=== PATIENT | male | born 1990 | race African-American/Black ===

== ENCOUNTER 2017-02-17 08:13 | Day surgery (SDC) | payer BC, OTHER ==
--- NOTE | 2017-02-16 12:13 | PDOC1 ---
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 He is a Safety, and had a noncontact injury where he planted his left foot, felt a pop in his Achilles and went down. He came off the field on a Gator, and even on the field he told the Lead Recoverer that he had ruptured his Achilles. He felt "numbness" in the Achilles, but his foot had normal sensation. He reported the lack of any plantarflexion strength. I examined him on the sidelines and confirmed an abnormal Garcia test done in the prone position. He was splinted , and iced and given crutches. Also, of note, in the first quarter of the game, he came off the field with a "shoulder dislocation" confirmed by the dog handler or trainer and then reduced by the call center trainer while still wearing his pads. He felt so good immediately after the reduction of the shoulder, with no pain, instability or weakness, that he was able to return to play. His shoulder was only slightly sore after the Achilles injury, and he was able to use crutches. The call center trainer is fairly confident that the dislocation was anterior, but by the time I saw the patient it had already been reduced, and I agree he had minimal symptoms. He reported no prior shoulder dislocation history or instability. Past Medical History Pulmonary: Asthma Past Surgical History Past Surgical History nasal surgery 2009 Family History Family History: Cancer (pancreatic), Diabetes Social History Smoke: No ALCOHOL: none Drugs: None Allergies Allergies: Coded Allergies: soy (Verified Allergy, Unknown, TEST REPORT POSITVE, 02/16/17) Physical Exam General: Alert, Oriented X3, Cooperative, No acute distress HEENT: Atraumatic, EOMI Lungs: Normal air movement Heart: RRR Abdomen: Soft Extremities: No clubbing, No cyanosis, Normal pulses, Other (Left leg minimal swelling at this time. Palpable defect in the Achilles tendon 5 cm proximal to the calcaneus. Markedly abnormal Garcia test. The other ankle has a normal Garcia test. He reports "numbness where my Achilles should be". I think he's feeling the acute loss of proprioceptive tendon fibers. He does not have numbness in the toes or foot, and the neurovascular exam distal is normal except for the loss of plantarflexion. His toe and ankle dorsiflexion are preserved. Nontender at the knee. Calf muscles have vague tenderness.) Skin: No rashes, No breakdown, No significant lesion Neuro: Normal speech, Sensation intact Psych/Mental Status: Mental status NL, Mood NL VTE Prophylaxis Ordered VTE Prophylaxis Devices: Yes VTE Pharmacological Prophylaxi: Yes Assessment/Plan Assessment/Plan Left achilles tendon rupture. He has an obvious acute left Achilles tendon rupture (closed, left). I discussed options for treatment. Most surgeons recommend acute surgical repair ( ideally within 7 days) for this injury, but I advised him there are a percentage of surgeons who treat this injury non operatively first in a long leg cast, and then a shorter cast. The risk of infections is less, but the risk of repeat rupture is higher than with surgery. I would recommend surgery for any healthy athlete such as him. I discussed the risks of surgery, including the most common for this surgery which is wound healing or skin problems and infection, followed by a small percentage of repeat rupture (much less than without surgery), and risks of blood clots or other potential surgical or anesthetic complications. We will use IV antibiotics, and oral postop aspirin to decrease the risks of infection or DVT. I discussed the procedure with suture repair, then a splint for 2 weeks, followed by a boot for 4 more weeks. At 6 weeks postop walking is likely, but no running. Then rehab often for several months before feeling solid and strong for sports. He stated understanding of the risks benefits and alternatives and would like to proceed with surgery. I recommend outpatient surgery on Monday02/17/17. He is currently splinted and on crutches. No x-ray or MRI is indicated. Surgery is indicated promptly. He agrees. Joana MCINTOSH and Patricio MCINTOSH were also present for the discussion. LILLIAN LONDON Feb 16, 2017 12:13
[~2017-02-17] VITALS: Ht 185.4 cm; Wt 102.1 kg
[~2017-02-17 08:13] MED LIST: ACET500T68 PO; BUDE10.2 IH; BUPIVACAINE 0.25% 50 ML VIAL. ONE; BUPIVACAINE-EPI 0.25%-1:200000 MPF 30 ML VIAL. ONE; FEXO180T81 PO; HYDROmorphone 2 MG/ML VIAL IV PRN; IBUP-1060 PO; IV RINGERS,LACTATED 1000ML 1,000 ML IV SCH; LIDOCAINE 1% 1 ML SYRINGE. ID PRN; MORPHINE SULFATE 2 MG/ML DISP.SYRIN. IV PRN; ONDANSETRON PF 4 MG/2 ML VIAL. IV PRN; PROAIR RESPICL90 MCG IH; PROCHLORPERAZINE 10 MG/2 ML VIAL. IV PRN; fentaNYL PF VIAL 100 MCG/2 ML VIAL IV PRN
[2017-02-17] MEDS ORDERED: SEVOFLURANE 61 TO 120 MINUTES. IH ONE (08:24)
[2017-02-17] MEDS ORDERED: PROPOFOL 20 ML IV ONE (08:27)
[2017-02-17] MEDS ORDERED: ROCURONIUM 100 MG/10 ML VIAL. ONE (08:27)
[2017-02-17] MEDS ORDERED: DEXAMETHASONE SOD PHOS 20 MG/5 ML VIAL. ONE (08:27)
[2017-02-17] MEDS ORDERED: KETOROLAC 60 MG/2 ML INJ FOR OR. ONE (08:27)
[2017-02-17] MEDS ORDERED: MIDAZOLAM HCL/PF 2 MG/2 ML VIAL. ONE (08:27)
[2017-02-17] MEDS ORDERED: NEOSTIGMINE METHYLSULFATE 5 MG/5 ML SYRINGE. ONE (08:27)
[2017-02-17] MEDS ORDERED: fentaNYL PF VIAL 100 MCG/2 ML VIAL ONE ×3 (08:27→11:38)
[2017-02-17] MEDS ORDERED: ONDANSETRON PF 4 MG/2 ML VIAL. ONE (08:27)
[2017-02-17] MEDS ORDERED: GLYCOPYRROLATE 1 MG/5 ML VIAL. ONE (08:27)
[2017-02-17] MEDS ORDERED: LIDOCAINE 2% PF Vial for OR 5 ML VIAL. ONE (08:28)
[2017-02-17] MEDS ORDERED: BUPIVACAINE-EPI 0.25%-1:200000 MPF 30 ML VIAL. ONE (10:44)
--- NOTE | 2017-02-17 11:23 | PDOC4 ---
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 He had a popping sensation, felt his Achilles tear, and fell to the ground. He was helped off the field. Garcia test was markedly abnormal consistent with Achilles rupture. He has had some previous Achilles tendinitis symptoms. 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 I recommended surgical repair although I did discuss the option of nonoperative treatment in a cast. The rerupture rate is higher without surgery. The risks of surgery include skin or wound healing problems, infection, nerve injury, blood clots, rerupture, scarring, stiffness, pain, or other potential surgical or anesthetic competitions, but the surgical outcomes to me seem better than the nonsurgical outcomes, and the literature also supports surgical fixation in athletes. The patient and I discussed the risks, benefits and alternatives of surgery. All of his questions about surgery were answered and he desired to proceed. His mother was also involved in the decision-making. She traveled from [place] to be her for the surgery today. Procedure in Detail: The patient was identified in the preoperative holding area. The correct left lower extremity was marked by me. The patient was taken to the operating room where general anesthesia was used. The patient was positioned prone on the operating table with the bony prominences well-padded and with the eyes protected. Preoperative antibiotics were given intravenously. A tourniquet was placed on the upper left thigh. A timeout procedure was performed. The left lower extremity was prepared from the toes to the knee with sterile skin prep fluid Sterile drapes were applied. An Esmarch bandage was used to exsanguinate the limb and the tourniquet was inflated to 300 mmHg. A longitudinal incision was made slightly medial to the midline of the Achilles , to avoid a painful heel scar. Sharp dissection was used and Bovie electrocautery was used for hemostasis. The peritenon was incised. A full- thickness high-grade Achilles tendon rupture was noted. The tendon fibers were markedly abnormal, with a lot of stranding, stringiness, and underlying tendinopathy. Despite this, it did appear that a primary repair could be obtained without difficulty. The hematoma was cleared with curettes, rongeurs, and irrigation. Central portion of the repairs using #5 FiberWire, in a Ventura pattern in the distal fragment which has less tendinosis, and then in a Krakw pattern on the proximal tendon which has more tendinopathy and does not hold the sutures quite as well. I had Nicole hold the foot plantar flexed to allow primary repair without difficulty, and reapproximated the tendon fiber. I did not debride any of the tendon fibers, as there would have been no obvious place to stop debriding abnormal tendon, without creating a huge defect. With Nicole holding the foot plantar flexed, the #5 FiberWire central core repair suture was tied and an excellent reapproximation was obtained. I then oversewed the tendon edges with 2-0 PDS suture, in a running baseball type pattern and was able to reapproximate the remaining stranded tendon fibers for a nice looking repair. Copious irrigation was used. Anesthetic was injected into the skin edges, consisting of 30 mL of 0.5% Marcaine with epinephrine. The tourniquet was released. Bovie electrocautery was used for hemostasis. The peritenon was repaired with 2-0 Vicryl interrupted sutures. The subcutaneous continues tissues were closed with 2-0 Vicryl interrupted sutures. I had Nicole close the skin with 2-0 nylon horizontal mattress sutures. Xeroform and a sterile dressing and a posterior splint were then applied by Nicole. Needle and sponge counts were correct. There were no apparent complications. KATHIE HORNE MD Feb 17, 2017 11:23
[2017-02-17] MEDS: fentaNYL PF VIAL 100 MCG/2 ML VIAL IV PRN ×2 (11:44→12:08)
[2017-02-17] MEDS ORDERED: HYDROcodone/APAP 7.5/325MG 1 TAB TABLET PO ONE (11:45)
[2017-02-17 13:10] VITALS: BP 115/78
== END 2017-02-17 13:16 | disposition home or self-care (01) ==
LOC: SURG 08:13
PROVIDERS: ATTEND Orthopaedic Surgery
DX: S86.012A Strain of left Achilles tendon, initial encounter (principal); X58.XXXA Exposure to other specified factors, initial encounter; Y93.89 Activity, other specified; Y92.89 Other specified places as the place of occurrence of the external cause; Y99.8 Other external cause status; J45.909 Unspecified asthma, uncomplicated; Z72.89 Other problems related to lifestyle; Z87.39 Personal history of other diseases of the musculoskeletal system and connective tissue; Z91.018 Allergy to other foods
CPT/HCPCS: 27650; J0690; J1100; J1885; J2250; J2405; J2704; J2710; J3010; J3490; J7120; J2001